=== PATIENT | male | born 1970 | race Two or more races ===

== ENCOUNTER 2019-03-04 12:44 | Emergency (ER) | payer SELFPAY ==
--- NOTE | 2019-03-04 13:29 | ER Document Report ---
ED General - General Chief Complaint: Chest Pain Stated Complaint: CHEST PAIN Time Seen by Provider: 03/04/19 13:09 - HPI Notes: Patient is a 48-year-old male who presents to the emergency department for evaluation. He started having chest pain while in court today. The patient was diagnosed with rapid atrial fibrillation in his hometown of [place] a little over a week ago. He had chest pain, was admitted to a cardiac care unit, work-up was found to be negative. Several days later he was found to be in rapid atrial fibrillation. He left at that point AGAINST MEDICAL ADVICE, had did present to [place] for court hearing. While in court today he developed sharp left- sided chest pain, nonradiating, with associated shortness of breath. EMS found the patient to be in rapid atrial fibrillation. He was administered IV Cardizem. At that point he did convert to sinus rhythm, but also had a clear allergic reaction, including urticaria. The patient was medicated with Benadryl, had resolution of the symptoms. He continues to be chest pain-free. He denies any shortness of breath. 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 - Related Data Allergies/Adverse Reactions: diltiazem [From Cardizem] Allergy (Verified 03/04/19 13:17) sumatriptan [From Imitrex] Allergy (Verified 03/04/19 13:17) Home Medications: Seroquel Past Medical History - General Information source: Patient - Social History Smoking Status: Never Smoker Frequency of alcohol use: None Drug Abuse: None Family History: CAD Patient has suicidal ideation: No Patient has homicidal ideation: No - Past Medical History Cardiac Medical History: Reports: Hx Atrial Fibrillation Neurological Medical History: Reports: Other - TIA Psychiatric Medical History: Reports: Hx Bipolar Disorder, Hx Post Traumatic Stress Disorder Review of Systems - Review of Systems Constitutional: No symptoms reported EENT: No symptoms reported Cardiovascular: See HPI Respiratory: See HPI Gastrointestinal: No symptoms reported Genitourinary: No symptoms reported Musculoskeletal: No symptoms reported Skin: No symptoms reported Neurological/Psychological: No symptoms reported Physical Exam - Vital signs Vitals: Resp Pulse Ox 13 97 03/04/19 13:05 03/04/19 13:05 - Notes Notes: This is a pleasant 48-year-old male who appears stated age in no acute distress. Vital signs reviewed, please refer to chart. Head is normocephalic, atraumatic. Pupils equal round, reactive to light. Neck is supple without meningismus. Heart is regular rate and rhythm. Lungs are clear to auscultation bilaterally. Abdomen is soft, nontender, normoactive bowel sounds throughout. Extremities without cyanosis, clubbing. Posterior calves are nontender. Peripheral pulses are equal. Skin is warm and dry. Patient is awake, alert, neurological exam is nonfocal. Course - Re-evaluation Re-evalutation: 03/04/19 13:28 Patient presents to the emergency department for evaluation. At the time of my evaluation, the patient was in sinus rhythm. An allergy to Cardizem was added to his chart. Patient seems to have been having paroxysmal atrial fibrillation for some time. Will order cardiac work-up, thyroid studies. We discussed the increased risk of embolic stroke in atrial fibrillation patients. At this point, patient remained stable, chest pain-free, and in sinus rhythm. We will continue to monitor. 03/04/19 15:36 Patient remained in sinus rhythm throughout the course of his stay. He had no chest tightness or chest pain. He has no signs of heart failure. His blood work came back unremarkable. At this point I will start him on low-dose metoprolol. Will place referral to cardiology, as he does believe he will be in the area for some time. The patient had been on aspirin in the past for his history of TIA, he is urged to restart 325 mg of aspirin daily. He is to follow-up with cardiology as referred, return to the ED with worsening or new concerning symptoms of any sort. - Vital Signs Vital signs: Temp Pulse Resp BP Pulse Ox 22 H 147/101 H 97 03/04/19 13:23 03/04/19 13:23 03/04/19 13:23 - Laboratory Result Diagrams: 03/04/19 12:55 03/04/19 14:20 Laboratory results interpreted by me: 03/04/19 14:20 Carbon Dioxide 31 H - Diagnostic Test Radiology reviewed: Reports reviewed Radiology results interpreted by me: 03/04/19 15:37 Chest X-Ray 03/04/19 13:22 IMPRESSION: NO ACUTE RADIOGRAPHIC FINDING IN THE CHEST. - EKG Interpretation by Me Additional EKG results interpreted by me: 12/31/19 15:37 Sinus mechanism with a rate of 67 bpm. Normal axis and intervals, no acute ST changes concerning for ischemia or infarction. Discharge - Discharge Clinical Impression: Paroxysmal atrial fibrillation Condition: Stable Disposition: HOME, SELF-CARE Instructions: Atrial Fibrillation ([facility]) Additional Instructions: Take metoprolol as directed. Please restart aspirin, 325 mg daily, follow-up with cardiology in 1 to 2 weeks. If you develop chest pain, palpitations that do not more, difficulty breathing, seeing, speaking, or swallowing, or any other new or concerning symptoms, please return immediately to the emergency department for evaluation. Referrals: JOHNNIE TREVIÑO MD [ACTIVE STAFF] - Follow up as needed
[2019-03-04 13:33] LABS: ABSOLUTE BASOPHILS # (AUTO) 0.1 10^3/uL (0.0-0.2); ABSOLUTE EOSINOPHILS # (AUTO) 0.3 10^3/uL (0.0-0.6); ABSOLUTE LYMPHOCYTES (AUTO) 1.1 10^3/uL (0.5-4.7); ABSOLUTE MONOCYTES (AUTO) 0.5 10^3/uL (0.1-1.4); ABSOLUTE NEUT (AUTO) 5.2 10^3/uL (1.7-8.2); BASOPHILS % (AUTO) 0.9 % (0-2); EOSINOPHILS % (AUTO) 3.6 % (0-6); HEMOGLOBIN 14.5 g/dL (13.5-17.0); MEAN CORPUSCULAR HEMOGLOBIN 28.2 pg (27.0-33.4); MEAN CORPUSCULAR HGB CONC 33.7 g/dL (32.0-36.0); MEAN CORPUSCULAR VOLUME 84 fl (80-97); MONOCYTES % (AUTO) 7.2 % (3-13); PLATELET COUNT 272 10^3/uL (150-450); RED BLOOD COUNT 5.14 10^6/uL (4.35-5.55); RED CELL DISTRIBUTION WIDTH 13.5 % (11.5-14.0); SEGMENTED NEUTROPHILS % (AUTO) 72.3 % (42-78); TOTAL CELLS COUNTED % (AUTO) 100 %; WHITE BLOOD COUNT 7.1 10^3/uL (4.0-10.5)
--- NOTE | 2019-03-04 13:58 | RADIOLOGY REPORT (SQ) ---
EXAM DESCRIPTION: CHEST 2 VIEWS COMPLETED DATE/TIME: 03/04/2019 1:43 pm REASON FOR STUDY: chest pain, atrial fibrillation COMPARISON: None. EXAM PARAMETERS: NUMBER OF VIEWS: two views TECHNIQUE: Digital Frontal and Lateral radiographic views of the chest acquired. RADIATION DOSE: NA LIMITATIONS: none FINDINGS: LUNGS AND PLEURA: No opacities, masses or pneumothorax. No pleural effusion. MEDIASTINUM AND HILAR STRUCTURES: No masses or contour abnormalities. HEART AND VASCULAR STRUCTURES: Heart normal size. No evidence for failure. BONES: No acute findings. HARDWARE: None in the chest. OTHER: No other significant finding. IMPRESSION: NO ACUTE RADIOGRAPHIC FINDING IN THE CHEST. TECHNICAL DOCUMENTATION: JOB ID: [id number] [employer]- All Rights Reserved Reading location - IP/workstation name: [email or web address]
[2019-03-04 14:54] LABS: ALBUMIN 4.2 g/dL (3.5-5.0); ALKALINE PHOSPHATASE 57 U/L (38-126); ANION GAP 7 (5-19); ASPARTATE AMINO TRANSFERASE 19 U/L (17-59); BILIRUBIN,DIRECT 0.2 mg/dL (0.0-0.4); BILIRUBIN,TOTAL 0.4 mg/dL (0.2-1.3); BLOOD UREA NITROGEN 10 mg/dL (7-20); CALCIUM 9.4 mg/dL (8.4-10.2); CARBON DIOXIDE 31 mmol/L (22-30); CHLORIDE 105 mmol/L (98-107); CREATINE KINASE 116 U/L (55-170); GLUCOSE 93 mg/dL (75-110); POTASSIUM 4.3 mmol/L (3.6-5.0); TOTAL PROTEIN 7.4 g/dL (6.3-8.2)
[2019-03-04 15:09] LABS: CREATINE KINASE MB 0.55 ng/mL (<4.55)
[2019-03-04 15:11] LABS: TROPONIN I < 0.012 ng/mL
[2019-03-04 16:28] VITALS: BP 114/104
--- NOTE | 2019-03-04 19:13 | EKG REPORT ---
SEVERITY:- NORMAL ECG - SINUS RHYTHM : Confirmed by: Manohar Pandey MD 04-Mar-2019 19:12:16
== END 2019-03-04 16:30 | disposition home or self-care (01) ==
LOC: ER 12:44
DX: I48.0 Paroxysmal atrial fibrillation (principal); R07.9 Chest pain, unspecified; L50.9 Urticaria, unspecified
CPT/HCPCS: 36415; 71046; 80053; 82550; 82553; 84443; 84484; 85025; 93005; 93010; 99285